=== PATIENT | female | born 1985 | race Two or more races ===

== ENCOUNTER → 2024-10-25 | Day surgery (SDC) | payer MEDICAID ==
[2024-10-21 08:48] LABS: Urine Bacteria None Seen /hpf (None Seen)
[2024-10-21 08:52] LABS: Basophils # (auto) 0.1 10 ^3/uL (0-0.2); Basophils % (auto) 0.7 % (0.0-2.0); Eosinophils # (auto) 0.1 10 ^3/uL (0-0.8); Eosinophils % (auto) 1.9 % (0.0-7.0); Hematocrit 40.1 % (36.0-46.0); Hemoglobin 13.3 g/dL (12.2-16.2); Lymphocytes # (auto) 2.4 10 ^3/uL (0.4-5.4); Lymphocytes % (auto) 33.2 % (10.0-50.0); Mean Corpuscular Hgb Conc. 33.1 g/dL (32.0-36.0); Mean Corpuscular Volume 87.6 fL (80.0-100.0); Monocytes # (auto) 0.5 10 ^3/uL (0-1.3); Monocytes % (auto) 7.3 % (0.0-12.0); Neutrophils # (auto) 4.2 10 ^3/uL (1.6-8.6); Neutrophils % (auto) 56.9 % (37.0-80.0); Platelet Count (auto) 195 10^3/uL (140-450); Red Blood Cells 4.57 10^6/uL (4.0-5.20); Red Cell Distribution Width 14.4 % (11.8-14.3); White Blood Cell 7.3 10^3/uL (4.4-10.8)
[2024-10-21 09:14] LABS: Urine Blood Negative /uL (Negative); Urine Clarity Clear (Clear); Urine Color Yellow (Yellow); Urine Mucus FEW (None Seen); Urine Protein, UAD Negative (Negative); Urine Specific Gravity 1.023 (1.001-1.035); Urine Urobilinogen Normal (Negative); Urine WBC 2 /hpf (0 - 5); Urine pH 6.5 (5.0-9.0)
[2024-10-21 09:17] LABS: INR 1.08 (0.9-1.15); Prothrombin Time 11.4 sec (9.3-11.8)
[2024-10-21 09:18] LABS: Alanine Aminotransferase 18 U/L (7-40); Albumin 4.4 g/dL (3.2-4.8); Alkaline Phosphatase 67 U/L (46-116); Anion Gap 7 (5-15); Aspartate Aminotransferase 13 U/L (13-40); BUN/Creatinine Ratio 10.9 (10.0-20.0); Bilirubin, Total 0.5 mg/dL (0.2-1.0); Calcium 9.8 mg/dL (8.7-10.4); Carbon Dioxide 29 mmol/L (20-31); Chloride 105 mmol/L (98-107); Glucose 98 mg/dL (74-106); Potassium 3.7 mmol/L (3.5-5.1); Sodium 141 mmol/L (136-145); Total Protein 7.4 g/dL (5.7-8.2)
[2024-10-21 09:22] LABS: Blood Urea Nitrogen 7 mg/dL (9-23)
[~2024-10-25] VITALS: Ht 160 cm; Wt 105.7 kg
[~2024-10-25] MED LIST: BUPIVACAINE 0.25% INJ 50ML VIAL ONE; GLYCOPYRROLATE 0.2 MG/ML 1ML VIAL ONE; HYDR-4902 PO; HYDROmorphone HCL 2 MG/ML VL/or syr IV PRN; IBUP-1456 PO; KETOROLAC TROMETH 30 MG/ML 1ML VIAL IV ONE; LIDOCAINE 1% INJ PF 5ML AMP ONE; LIDOCAINE 2% TOPICAL JELLY 5 ML URJT TOP ONE; MEPERIDINE HCL (50 MG/ML) 1 ML VIAL ONE; MIDAZOLAM HCL 2MG/2ML 2ml VIAL (1mg/ml) ONE; MORPHINE SULFATE INJ 2 MG/ml SYRG IV PRN; NEOSTIGMINE 1 MG/ML INJ (10mg/10ML VIAL) ONE; ONDANSETRON HCL 4 MG/2 ML VIAL ONE; PROPOFOL 10 MG/ML 20 ML IV ONE; ROCURONIUM 10MG/ML 10ML VIAL IV ONE; SEMA2INJ3 SC; SODIUM CHLORIDE LOCK 50 ML ONE; SUGAMMADEX 200mg/2ml Vial (100MG/ML) IV ONE; fentaNYL CITRATE 100 MCG/2 ML VL IV PRN; fentaNYL CITRATE 100 MCG/2 ML VL ONE
--- NOTE | 2024-10-25 10:39 | DVHHP ---
ADMIT DATE: 10/25/2024 CHIEF COMPLAINT: Desire for female sterilization. HISTORY OF PRESENT ILLNESS: This is a 39-year-old female 4, para 4, last menstrual period 10/14/2024. The patient desires and is seeking permanent voluntary female sterilization. She does not desire any future childbearing. She has tried other contraceptives in the past with side effects. Therefore, she is requesting permanent sterilization. PAST MEDICAL HISTORY: Diabetes type 2, obesity. PAST SURGICAL HISTORY: Nasal septum surgery. MEDICATIONS: Ozempic, stopped 2 weeks ago. ALLERGIES: No known drug allergies. SOCIAL HISTORY: The patient is . Denies any tobacco, drugs or illicit drug use. FAMILY HISTORY: Negative and noncontributory. REVIEW OF SYSTEMS: Negative as otherwise stated in the history of present illness. PHYSICAL EXAMINATION: VITAL SIGNS: Stable. GENERAL: She is alert, pleasant, no acute distress. HEENT: Normocephalic, atraumatic. Extraocular muscles intact. NECK: Supple, with no palpable thyromegaly. CARDIOVASCULAR: Chest normal S1, S2 heart sounds. No murmurs or gallops. LUNGS: Clear to auscultation bilaterally. ABDOMEN: Obese, soft, nontender, no palpable masses. EXTREMITIES: Without cyanosis or edema. PELVIC: Shows normal external female genitalia without lesions. Uterus, cervix and adnexa within normal limits. ASSESSMENT: Multiparity requesting voluntary female sterilization. PLAN: The patient will be admitted for outpatient laparoscopic bilateral tubal ligation via bilateral total salpingectomy. The patient declined Filshie clips or fulguration of the fallopian tubes. She desires complete removal of the fallopian tubes. She understands the risks, benefits and alternatives to surgery including risks of scar, pain, bleeding, infection, injury to bowel, bladder, adjacent organs. She understands the procedure is permanent and nonreversible and associated with 1% failure rate, risk of ectopic and future regret all discussed with the patient. All questions were answered to patient's satisfaction. DO OSMAN Alexander TID: [id number] RECEIPT: [id number] [facility]
[2024-10-25] MEDS: ceFAZolin 2 GM/D5W100ml 100 ML IV ONE (10:52)
[2024-10-25] MEDS: LIDOCAINE W/ EPINEPHRINE 1% 20ML VIAL ONE (11:42)
[2024-10-25 11:53] VITALS: PULSE 89; RESP 16; TEMP 97.6; O2SAT 94
[2024-10-25] MEDS: METOCLOPRAMIDE HCL 5MG/ml INJ 2ml VIAL IV ONE (12:36)
--- NOTE | 2024-10-25 12:36 | DVHOP ---
DATE OF SURGERY: 10/25/2024 PREOPERATIVE DIAGNOSES: Multiparity, requesting voluntary female sterilization. FINAL DIAGNOSES: Multiparity, requesting voluntary female sterilization. PROCEDURE PERFORMED: Operative laparoscopic bilateral salpingectomy. SURGEON: Kentrell Oglesby DO. SOAP GRINDER: Power Liriano NP. TYPE OF ANESTHESIA: General endotracheal. ANESTHESIOLOGIST: Beatriz Gavin MD. DESCRIPTION OF FINDINGS: Normal size uterus. Uterine cavity sounds to 8 cm. Normal bilateral fallopian tubes and ovaries, normal appendix, normal intra-abdominal organs. Successful removal of bilateral fallopian tubes. TECHNICAL PROCEDURE: After informed consent was obtained, the patient was taken to the operating room where she underwent smooth induction with general anesthesia. The patient was placed in dorsal lithotomy position in Krishna stirrups. The vagina, perineum, abdomen were thoroughly prepped and draped in the usual sterile fashion. A pelvic exam was performed under anesthesia. A weighted speculum was placed in the patient's vagina and the anterior lip of the cervix was grasped with a single tooth tenaculum. There was a cervical laceration from the tenaculum. This was repaired using a 3-0 Vicryl with good tissue approximation and hemostasis noted. The tenaculum was removed and the cervix was grasped with ring forceps. The cervical canal was serially dilated to a 6 mm Hegar dilator. Uterine cavity sounded to 8 cm. A HUMI uterine manipulator was placed transcervically. The balloon inflated. The bladder was drained with a Rubi catheter. Attention was then placed to the abdomen where a 5 mm incision was made at the base of the umbilicus. Using a Veress needle, intraperitoneal placement of the needle was conducted in the usual fashion. Intraperitoneal placement was confirmed with the hanging water drop test. Carbon dioxide gas was infused and pneumoperitoneum was obtained. Through this 5 mm umbilical incision, an Optiview 5 mm trocar was inserted under direct visualization. Intraperitoneal placement was confirmed directly with the laparoscope. Two additional ports were inserted to the left and right of midline under direct visualization. An 8 mm port was inserted to the left of midline under direct visualization. Next, the assistant guest services manager manipulated the uterus from below. I then identified the left fallopian tube and traced it to its fimbriated end. The assistant guest services manager elevated the fallopian tube and I used a LigaSure device to divide the mesosalpinx on the left with bipolar energy. The mesosalpinx was divided distally and the dissection continued proximally to the cornual region of the fallopian tube. The fallopian tube was amputated at its attachment to the uterus. The cut end was cauterized with the LigaSure device. The fallopian tube was grasped and brought out through the 8 mm port and the specimen submitted to pathology. The similar procedure was exactly replicated on the contralateral fallopian tube. There was no bleeding from the mesosalpinx. At this point, the abdomen and pelvis were evaluated. There were no lesions, injury or any abnormalities noted as dictated above. At this point, the carbon dioxide gas was removed and the trocars were removed under direct visualization. The skin incisions were injected with 1% lidocaine with epinephrine, approximately 20 mL of solution was used across all 3 incisions. Next, the three skin incisions were closed with 3-0 Monocryl in subcuticular fashion. A thin layer of Dermabond placed over the incisions. The transcervical manipulator and the Rubi were removed. The patient was taken out of lithotomy position, awakened and taken to recovery room in stable condition. INTRAOPERATIVE COMPLICATIONS: None. ESTIMATED BLOOD LOSS: Less than 15 mL. POSTOPERATIVE CONDITION: Stable. SPECIMENS: Left and right fallopian tubes. MEDICATIONS: The patient received 2 grams of Ancef prior to skin incision. DO BIJAL Alexander TID: [id number] RECEIPT: [id number]
[2024-10-25 12:53] VITALS: BP 104/68; PULSE 70; RESP 16; O2SAT 94
== END | disposition home or self-care (01) ==
LOC: SUR 07:18
PROVIDERS: ATTEND Obstetrics & Gynecology
DX: Z30.2 Encounter for sterilization (principal); E11.9 Type 2 diabetes mellitus without complications; E66.9 Obesity, unspecified; Z64.1 Problems related to multiparity; Z90.79 Acquired absence of other genital organ(s); Z79.84 Long term (current) use of oral hypoglycemic drugs
CPT/HCPCS: 36415; 58661; 80053; 81001; 82962; 84702; 85025; 85610; 85730; 86850; 86900; 86901; 88307; J2175; J2250; J2405; J2704; J2765; J3010; J3490